=== PATIENT | female | born 1960 | race Caucasian/White ===

== ENCOUNTER 2019-01-03 11:11 | Day surgery (SDC) | payer OTHER ==
[~2019-01-03] VITALS: Ht 157.5 cm; Wt 82.7 kg
[2019-01-03] MEDS ORDERED: OMEPRAZOLE (12:32)
[2019-01-03] MEDS ORDERED: SAVELLA (12:32)
[2019-01-03] MEDS ORDERED: LISINOPRIL (12:32)
[2019-01-03 12:45] VITALS: BP 127/65; PULSE 66; RESP 20
[2019-01-03] MEDS ORDERED: LIDOCAINE 2% (SDV) 5 ML INJ ONE (12:54)
[2019-01-03] MEDS ORDERED: PROPOFOL 40 ML ONE (12:54)
--- NOTE | 2019-01-03 12:56 | PREAC ---
Date/Time of Note Date/Time of Note DATE: 01/03/19 TIME: 12:55 Anesthesia Eval and Record Evaluation Time Pre-Procedure Interview DATE: 01/03/19 TIME: 12:55 Age 58 Sex female NPO: 8 hrs Preoperative diagnosis Gerd; polyp colon Planned procedure EGD/Colonoscopy Past Medical History Past Medical History: Includes (fibromyalgia, ) Cardio: HTN, Dyslipidemia Musculoskeletal: Osteoarthritis GI: Obesity Surgery & Anesthesia Issues No known issue Meds Anticoagulation: No Beta Jose within 24 hr: No Reason Beta Jose not given: Pt. not on B-Jose Reported Medications [Savella] No Conflict Check 01/03/19 [Omeprazole] No Conflict Check 01/03/19 [Lisinopril] No Conflict Check 01/03/19 Meds reviewed: Yes Allergies Uncoded Allergies: PENICILLIN (Allergy, Unknown, 01/03/19) Allergies Reviewed: Yes Labs/Studies Labs Reviewed: Reviewed by anesthesiologist test: N/A Pre-procedure Exam Airway: Adequate mouth opening, Adequate thyromental dist Mallampati: Mallampati II Teeth: Normal Lung: Normal Heart: Normal ASA Physical Status ASA physical status: 2 Emergency: None Planned Anesthetic General/MAC: MAC Pre-operative Attestations Prior to commencing anesthesia and surgery, the patient was re-evaluated, there was verification of: *The patient's identity *The results of appropriate recent lab work and preoperative vital signs *The above evaluation not changing prior to induction *Anesthetic plan, risk benefits, alternative and complications discussed with patient/family; questions answered; patient/family understands, accepts and wishes to proceed. MILO LORENZO Jan 03, 2019 12:56
[2019-01-03] MEDS ORDERED: ALBUTEROL 0.083% (NEB) 2.5 MG/3 ML AMP HHN PRN (13:00)
[2019-01-03] MEDS ORDERED: FENTAnyl 50 MCG/ML VIAL IV PRN (13:00)
[2019-01-03] MEDS ORDERED: ONDANSETRON 4 MG INJ IV PRN (13:00)
[2019-01-03] MEDS ORDERED: ACETAMINOPHEN 500 MG TAB PO PRN (13:00)
--- NOTE | 2019-01-03 13:26 | PAC ---
Date/Time of Note Date/Time of Note DATE: 01/03/19 TIME: 13:25 Post-Anesthesia Notes Post-Anesthesia Note Last documented vital signs Vital Signs Date Temp Pulse Resp B/P (MAP) Pulse Ox O2 O2 Flow FiO2 Time Delivery Rate 01/03/19 97.0 98 66 80 20 16 127/65 100 100 Room 12:45 132 (85) 150/ Air face 5 65 mask 6L Activity: WNL Respiratory function: WNL Cardiovascular function: WNL Mental status: Baseline Pain reasonably controlled: Yes Hydration appropriate: Yes Nausea/Vomiting absent: Yes MILO LORENZO Jan 03, 2019 13:26
[2019-01-03 13:57] VITALS: BP 113/73; PULSE 62; RESP 22
== END 2019-01-03 15:26 | disposition home or self-care (01) ==
LOC: GIL 11:11
PROVIDERS: ATTEND Internal Medicine
DX: Z86.010 Personal history of colon polyps (principal); K29.50 Unspecified chronic gastritis without bleeding; I10 Essential (primary) hypertension; E78.5 Hyperlipidemia, unspecified
CPT/HCPCS: 43239; 45378; Z7610; 88305; 88312